=== PATIENT | female | born 1930 | race Caucasian/White ===

== ENCOUNTER 2020-04-19 09:55 | Emergency (ER) | payer MEDICARE, BC ==
[~2020-04-19] VITALS: Ht 162.6 cm; Wt 64.5 kg
[~2020-04-19 09:55] MED LIST: AMLO5TAB10 PO; DENO60DI SQ; IBUP100T8 PO; LOSA25TA11 PO; RALO60TA PO
[2020-04-19] MEDS ORDERED: IV NORMAL SALINE 1,000ML 1,000 ML IV SCH (10:08)
--- NOTE | 2020-04-19 10:13 | PHYS DOC ---
Past History Past Medical History: COPD, Hypertension, Other Past Surgical History: Other Smoking: Non-smoker Alcohol Use: None Drug Use: None General Adult EDM: Chief Complaint: ABNORMAL LABS HPI: HPI: Patient is an 89 year old female who presents for evaluation of some lower abdominal pain and cramping. Patient is a resident at a local assisted living facility. Patient's son brought her in for evaluation. Patient had recent labs drawn and was told she had a low hemoglobin. Patient has some persistent chronic shortness of air. She also states she feels very tired. Patient denies any other physical symptoms. She has no complaints of headache or chest pain. 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 Patient had some mild conversational dyspnea on arrival. Patient is not a good historian but can follow simple commands and answers basic questions. We called her extended-care facility and they provide additional information that she is been weak, short of air and had a recent headache over the past 1 week. Patient is DNR and is not on any known blood thinners Review of Systems: Review of Systems: Constitutional: Denies fever or chills Eyes: Denies change in visual acuity HENT: Denies nasal congestion or sore throat Respiratory: Denies cough or shortness of breath Cardiovascular: Denies chest pain or edema GI: lower abdominal pain, no nausea, vomiting, bloody stools or diarrhea : Denies dysuria Musculoskeletal: Denies back pain or joint pain Integument: Denies rash Neurologic: Denies headache, focal weakness or sensory changes Endocrine: Denies polyuria or polydipsia Lymphatic: Denies swollen glands Psychiatric: Denies depression or anxiety Heart Score: Risk Factors: Risk Factors: DM, Current or recent (<one month) smoker, HTN, HLP, family history of CAD, obesity. Risk Scores: Score 0 - 3: 2.5% MACE over next 6 weeks - Discharge Home Score 4 - 6: 20.3% MACE over next 6 weeks - Admit for Clinical Observation Score 7 - 10: 72.7% MACE over next 6 weeks - Early Invasive Strategies Allergies: Allergies: Allergies Coded Allergies Type Severity Reaction Last Updated Verified Penicillins Allergy Unknown 03/19/14 Yes Sulfa (Sulfonamide Antibiotics) Allergy Unknown 03/19/14 Yes clarithromycin Allergy Unknown 03/19/14 Yes morphine Allergy Unknown 03/19/14 Yes Physical Exam: PE: Constitutional: Well developed, well nourished, mild acute distress. [] HENT: Normocephalic, atraumatic, bilateral external ears normal, oropharynx somewhat dry, no oral exudates, nose normal. [] Eyes: PERRL, EOMI, conjunctiva normal, no discharge. [] Neck: Normal range of motion, no tenderness, supple, no stridor. [] Cardiovascular:Heart rate regular rhythm, no murmur [] Lungs & Thorax: Bilateral breath sounds clear to auscultation [] Abdomen: Bowel sounds diminished, soft, lower abd tenderness, no masses, no pulsatile masses. [] Skin: Warm, dry, no erythema, no rash. [] Back: No tenderness. [] Extremities: No tenderness, no cyanosis, ROM intact, no edema. [] Neurologic: Alert and oriented X 3, normal motor function, normal sensory function, no focal deficits noted. [] Psychologic: Affect abnormal, mood depressed. Rectal: Snack Stewardess present during exam. Essentially normal rectum, dark-colored stool present no gross blood present [] Current Patient Data: Labs: Laboratory Tests Test 04/19/20 10:22 White Blood Count 11.2 x10^3/uL Red Blood Count 2.72 x10^6/uL Hemoglobin 6.3 g/dL Hematocrit 20.0 % Mean Corpuscular Volume 73 fL Mean Corpuscular Hemoglobin 23 pg Mean Corpuscular Hemoglobin Concent 32 g/dL Red Cell Distribution Width 17.0 % Platelet Count 627 x10^3/uL Neutrophils (%) (Auto) 51 % Lymphocytes (%) (Auto) 41 % Monocytes (%) (Auto) 7 % Eosinophils (%) (Auto) 1 % Basophils (%) (Auto) 1 % Neutrophils # (Auto) 5.7 x10^3uL Lymphocytes # (Auto) 4.6 x10^3/uL Monocytes # (Auto) 0.8 x10^3/uL Eosinophils # (Auto) 0.1 x10^3/uL Basophils # (Auto) 0.1 x10^3/uL Sodium Level 131 mmol/L Potassium Level 4.5 mmol/L Chloride Level 98 mmol/L Carbon Dioxide Level 29 mmol/L Anion Gap 4 Blood Urea Nitrogen 19 mg/dL Creatinine 1.1 mg/dL Estimated GFR (Cockcroft-Gault) 46.9 BUN/Creatinine Ratio 17 Glucose Level 127 mg/dL Calcium Level 8.9 mg/dL Total Bilirubin 0.3 mg/dL Aspartate Amino Transf (AST/SGOT) 42 U/L Alanine Aminotransferase (ALT/SGPT) 32 U/L Alkaline Phosphatase 305 U/L Troponin I Quantitative < 0.017 ng/mL Total Protein 6.3 g/dL Albumin 2.4 g/dL Albumin/Globulin Ratio 0.6 Lipase 119 U/L Current Medications Medications (Trade) Dose Ordered Sig/Leonor Route PRN Reason Start Time Stop Time Status Last Admin Dose Admin Sodium Chloride 1,000 ml @ 100 mls/hr Q10H IV 04/19/20 10:08 04/19/20 20:07 04/19/20 10:40 Famotidine (Pepcid Vial) 20 mg 1X ONCE IVP 04/19/20 10:15 04/19/20 10:17 DC 04/19/20 10:39 EKG: EKG: EKG showed sinus rhythm rate 94, flattened T waves lead aVL, multiple PAC present, not STEMI [] Radiology/Procedures: Radiology/Procedures: [[place] [address] IMAGING REPORT Signed PATIENT: JONATHAN NEWBERRY ACCOUNT: [id number] : 1930 LOCATION: ER AGE: 89 SEX: F EXAM STATUS: REG ER ORD. PHYSICIAN: DOUG VILLANUEVA DO REASON: recent headache, confusion PROCEDURE: CT HEAD WO CONTRAST CT HEAD WO CONTRAST History:Recent headache, confusion Comparison: None. Technique: Noncontrast CT imaging was performed of the head. Exposure: One or more of the following individualized dose reduction techniques were utilized for this examination: 1. Automated exposure control 2. Adjustment of the mA and/or kV according to patient size 3. Use of iterative reconstruction technique. Findings: There is some motion. No convincing acute extra-axial or parenchymal hemorrhage is identified, mild hyperdensity of the left basal ganglia likely mild mineralization. There is no significant intra-axial mass effect, midline shift, or extra-axial fluid collection. The eisenberg-white differentiation of the major vascular territories is preserved. Ventricular size is proportionate to the sulcal spaces, mild generalized supratentorial involutional change. There is mild ill-defined low-density of the supratentorial parenchyma bilaterally. The mastoid air cells and the visualized paranasal sinuses are aerated. No acute calvarial abnormality is identified. There is some atherosclerotic calcification of the carotid siphons bilaterally. Impression: 1. No convincing acute intracranial abnormality is identified. Mild ill-defined low-density of the supratentorial parenchyma is nonspecific, more commonly due to chronic microvascular ischemic disease in a patient of this age. Electronically signed by: Jean Paul Mayberry MD (04/19/2020 11:30 AM) [id number] DICTATED AND SIGNED BY: JEAN PAUL MAYBERRY MD DATE: 04/19/20 1130 CC: DOUG VILLANUEVA DO; ENRIQUE ARROYO MD ~ Impressions: [address] [address] IMAGING REPORT Signed PATIENT: JONATHAN NEWBERRY ACCOUNT: [id number] : 1930 LOCATION: ER AGE: 89 SEX: F EXAM STATUS: REG ER ORD. PHYSICIAN: DOUG VILLANUEVA DO REASON: abd cramping, anemia PROCEDURE: ACUTE ABDOMEN SERIES ACUTE ABDOMEN SERIES History: Abdominal cramping and anemia Comparison: 10/31/2016 chest exam, no previous abdomen radiographs Findings: Single view of the chest, single supine, and single upright AP views of the abdomen are submitted. There is emphysema. Pericardial cardiac silhouette appears somewhat greater than previously although not significantly enlarged. There is no dependent pleural fluid or pneumothorax. There is small nodule of the right upper lobe although unchanged, previously greater degree of infiltrate present. There is some persistent fullness of the right suprahilar region fairly similar radiographically. Mild somewhat linear opacity of the mid to superior left hemithorax is similar. No free air is identified. There is an overall nonobstructive bowel gas pattern. 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 Impression: 1. Pericardial cardiac silhouette there is one larger than previously, otherwise no convincing acute radiographic abnormality. 2. There is emphysema. 3. There is a similar residual small right upper lobe nodule, also some fullness of the right suprahilar region similar radiographically allowing for previously greater degree of infiltrate present. Nonemergent chest CT would more accurately characterize findings if clinically needed. Electronically signed by: Jean Paul Mayberry MD (04/19/2020 11:37 AM) [id number] DICTATED AND SIGNED BY: JEAN PAUL MAYBERRY MD DATE: 04/19/20 1137 CC: DOUG VILLANUEVA DO; ENRIQUE ARROYO MD ~ Course & Med Decision Making: Course & Med Decision Making Pertinent Labs and Imaging studies reviewed. (See chart for details) []1155 Case discussed with our hospitalist, Dr. Arciniega. In light of patient's anemia and a possible GI bleed he felt patient would be better served at a higher care facility. On-call for the [facility] service called to discuss case. Patient is not on any known blood thinner. Because of patient's recent reported headache a CT scan was obtained but did not show evidence of a brain bleed. Patient is awake alert and appropriate at her baseline status 1219 Dr. Fatima (hospitalist) called back from [place] and accepted pt for admission. Will admit to [facility] bed. Guaiac is negative. Patient will be transfused 1 unit of blood. They are working on a bed now. DNR status is confirmed Pippa Disclaimer: Pippa Disclaimer: This electronic medical record was generated, in whole or in part, using a voice recognition dictation system. Departure Departure: Impression: Primary Impression: Anemia Additional Impressions: Lower abdominal tenderness Malaise and fatigue Headache Disposition: 05 TRANSFER OTHER ([facility] under care of Dr. Fatima) Condition: STABLE Referrals: ENRIQUE ARROYO MD (PCP) Justification of Admission: Justification of Admission: Justification of Admission Dx: Yes Comments: anemia requiring transfusion DOUG VILLANUEVA DO Apr 19, 2020 10:13
[2020-04-19] MEDS ORDERED: FAMOTIDINE 20 MG/2 ML VIAL IVP ONE (10:15)
[2020-04-19 10:51] LABS: BASO # 0.1 x10^3/uL (0.0-0.2); BASO % 1 % (0-3); EOS # 0.1 x10^3/uL (0.0-0.7); EOS % 1 % (0-3); LYMPH # 4.6 x10^3/uL (1.0-4.8); LYMPH % 41 % (24-48); MEAN CORPUSCULAR HEMOGLOBIN 23 pg (25-35); MEAN CORPUSCULAR HGB CONC 32 g/dL (31-37); MEAN CORPUSCULAR VOLUME 73 fL (79-100); MONO # 0.8 x10^3/uL (0.0-1.1); MONO % 7 % (0-9); NEUT # 5.7 x10^3uL (1.8-7.7); NEUT % 51 % (31-73); PLATELET COUNT 627 x10^3/uL (140-400); RED BLOOD COUNT 2.72 x10^6/uL (3.50-5.40); WHITE BLOOD COUNT 11.2 x10^3/uL (4.0-11.0)
[2020-04-19 10:57] LABS: CALCIUM 8.9 mg/dL (8.5-10.1); CREATININE 1.1 mg/dL (0.6-1.0); GFR 46.9; POTASSIUM 4.5 mmol/L (3.5-5.1)
[2020-04-19 10:58] LABS: HEMOGLOBIN 6.3 g/dL (12.0-15.5)
[2020-04-19 11:03] LABS: ALBUMIN 2.4 g/dL (3.4-5.0); ALBUMIN/GLOBULIN RATIO 0.6 (1.0-1.7); TOTAL BILIRUBIN 0.3 mg/dL (0.2-1.0); TOTAL PROTEIN 6.3 g/dL (6.4-8.2)
--- NOTE | 2020-04-19 11:33 | RAD ---
CT HEAD WO CONTRAST History:Recent headache, confusion Comparison: None. Technique: Noncontrast CT imaging was performed of the head. Exposure: One or more of the following individualized dose reduction techniques were utilized for this examination: 1. Automated exposure control 2. Adjustment of the mA and/or kV according to patient size 3. Use of iterative reconstruction technique. Findings: There is some motion. No convincing acute extra-axial or parenchymal hemorrhage is identified, mild hyperdensity of the left basal ganglia likely mild mineralization. There is no significant intra-axial mass effect, midline shift, or extra-axial fluid collection. The eisenberg-white differentiation of the major vascular territories is preserved. Ventricular size is proportionate to the sulcal spaces, mild generalized supratentorial involutional change. There is mild ill-defined low-density of the supratentorial parenchyma bilaterally. The mastoid air cells and the visualized paranasal sinuses are aerated. No acute calvarial abnormality is identified. There is some atherosclerotic calcification of the carotid siphons bilaterally. Impression: 1. No convincing acute intracranial abnormality is identified. Mild ill-defined low-density of the supratentorial parenchyma is nonspecific, more commonly due to chronic microvascular ischemic disease in a patient of this age. Electronically signed by: Daniel Bland MD (04/19/2020 11:30 AM) [id number]
--- NOTE | 2020-04-19 11:40 | RAD ---
ACUTE ABDOMEN SERIES History: Abdominal cramping and anemia Comparison: 10/31/2016 chest exam, no previous abdomen radiographs Findings: Single view of the chest, single supine, and single upright AP views of the abdomen are submitted. There is emphysema. Pericardial cardiac silhouette appears somewhat greater than previously although not significantly enlarged. There is no dependent pleural fluid or pneumothorax. There is small nodule of the right upper lobe although unchanged, previously greater degree of infiltrate present. There is some persistent fullness of the right suprahilar region fairly similar radiographically. Mild somewhat linear opacity of the mid to superior left hemithorax is similar. No free air is identified. There is an overall nonobstructive bowel gas pattern. 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 Impression: 1. Pericardial cardiac silhouette there is one larger than previously, otherwise no convincing acute radiographic abnormality. 2. There is emphysema. 3. There is a similar residual small right upper lobe nodule, also some fullness of the right suprahilar region similar radiographically allowing for previously greater degree of infiltrate present. Nonemergent chest CT would more accurately characterize findings if clinically needed. Electronically signed by: Daniel Bland MD (04/19/2020 11:37 AM) [id number]
[2020-04-19 12:09] LABS: FECAL OB PT NEGATIVE (NEG)
[2020-04-19 12:25] VITALS: BP 129/62
[2020-04-19 14:05] LABS: BACTERIA,URINE 0 /HPF (0-FEW); BILIRUBIN,URINE NEG (NEG); CLARITY,URINE CLEAR; COLOR,URINE YELLOW; GLUCOSE,URINE NEG (NEG); NITRITE,URINE NEG (NEG); RBC,URINE 0 /HPF (0-2); SQUAMOUS EPITHELIAL CELL,UR FEW /LPF; UROBILINOGEN,URINE 0.2 mg/dL (0.2 mg/dL); WBC,URINE OCC /HPF (0-4)
--- NOTE | 2020-04-19 15:54 | EKG ---
[address] [address] Test Date: 2020-04-19 Test Time: 10:33:00 Pat Name: JONATHAN NEWBERRY Department: Room: Gender: F Tan Room Supervisor: MANJEET : 1930 Requested By: DOUG VILLANUEVA Order Number: [id number] Reading MD: Measurements Intervals [place] Rate: 94 P: 70 WY: 130 QRS: 56 QRSD: 72 T: 59 QT: 312 QTc: 395 Interpretive Statements SINUS RHYTHM ATRIAL PREMATURE COMPLEX(ES), BIGEMINY ABNORMAL ECG RI6.02 No previous ECG available for comparison
[2020-04-19] MEDS ORDERED: ACETAMINOPHEN 325 MG TABLET PO ONE (17:15)
[2020-04-19 17:36] VITALS: BP 145/75
== END 2020-04-19 17:42 | disposition short-term general hospital (02) ==
LOC: ER 09:55
DX: D64.9 Anemia, unspecified (principal); R10.30 Lower abdominal pain, unspecified; R53.83 Other fatigue; R51 Headache; R53.81 Other malaise; J44.9 Chronic obstructive pulmonary disease, unspecified; I10 Essential (primary) hypertension; Z88.0 Allergy status to penicillin; Z88.2 Allergy status to sulfonamides; Z88.5 Allergy status to narcotic agent; Z88.1 Allergy status to other antibiotic agents
CPT/HCPCS: 36415; 36430; 70450; 74022; 80053; 81001; 82274; 83690; 84484; 85025; 86850; 86900; 86901; 86920; 93005; 96361; 96374; 99285; J3490; J7030; P9016

== ENCOUNTER 2020-06-01 09:31 | Inpatient (IN) | payer MEDICARE, BC ==
[~2020-06-01] VITALS: Ht 152.4 cm; Wt 52.1 kg
[2020-06-01] VITALS (9 sets, daily range): BP systolic 94–134; BP diastolic 41–84
[2020-06-01] MEDS ORDERED: IV NORMAL SALINE 1,000ML 1,000 ML IV ONE (10:00)
--- NOTE | 2020-06-01 10:05 | PHYS DOC ---
Past History Past Medical History: COPD, Hypertension, Other Past Surgical History: Other Smoking: Non-smoker Alcohol Use: None Drug Use: None General Adult EDM: Chief Complaint: LOWER EXTREMITY SWELLING HPI: HPI: 89-year-old female past medical history significant for COPD, hypertension and anemia, presents to the ED from [place] with complaints of leg swelling x 1 week with increased heart rate. Pt does have some mild dementia, son present in ed. EMR was reviewed and patient was seen here in April 2020 for abdominal pain, was transferred to [facility], s/p colon resection 2/ adenocarcinoma. Pt with no active compliants. Son reports she's not as active/alert as she normally is. Medications reviewed, on no AC. 2016 echo with normal EF, mild mitral regurgitation. Son doesn't think pt had an echo on past admission. Pt was discharged from rehab yesterday. Review of Systems: Review of Systems: Constitutional: Denies fever or chills Eyes: Denies change in visual acuity HENT: Denies nasal congestion or sore throat Respiratory: Denies cough or shortness of breath or hemoptysis Cardiovascular: Denies chest pain or palpitations GI: Denies abdominal pain, nausea, vomiting, or diarrhea : Denies dysuria, hematuria Musculoskeletal: Denies back pain or joint pain Integument: Denies rash Neurologic: Denies headache, focal weakness or sensory changes Endocrine: Denies polyuria or polydipsia Lymphatic: Denies swollen glands Psychiatric: Denies depression or anxiety Heart Score: Risk Factors: Risk Factors: DM, Current or recent (<one month) smoker, HTN, HLP, family history of CAD, obesity. Risk Scores: Score 0 - 3: 2.5% MACE over next 6 weeks - Discharge Home Score 4 - 6: 20.3% MACE over next 6 weeks - Admit for Clinical Observation Score 7 - 10: 72.7% MACE over next 6 weeks - Early Invasive Strategies Current Medications: Current Meds: Current Medications Medications (Trade) Dose Ordered Sig/Leonor Start Time Stop Time Status Last Admin Dose Admin Sodium Chloride 1,000 ml @ 1,000 mls/hr 1X ONCE 06/01/20 10:00 06/01/20 10:59 Allergies: Allergies: Allergies Coded Allergies Type Severity Reaction Last Updated Verified Penicillins Allergy Unknown 03/19/14 Yes Sulfa (Sulfonamide Antibiotics) Allergy Unknown 03/19/14 Yes clarithromycin Allergy Unknown 03/19/14 Yes morphine Allergy Unknown 03/19/14 Yes Physical Exam: PE: Constitutional: Well developed, well nourished, no acute distress, non-toxic appearance. [] HENT: Normocephalic, atraumatic, Eyes: EOMI, conjunctiva normal, no discharge. [] Neck: Normal range of motion, supple, Cardiovascular: irregular fast rhythm, no murmur [] Lungs & Thorax: Bilateral breath sounds clear to auscultation, 100% on 3L NC- pts' baseline Abdomen: midline lower abdominal scar, c/d/i, Bowel sounds normal, soft, no tenderness, no masses, no pulsatile masses, no ascites Skin: Warm, dry, no erythema, no rash. [] Back: No tenderness, no CVA tenderness. [] Extremities: No tenderness, no cyanosis, no clubbing, ROM intact, +3/4 bl pitting edema with weeping, right leg slightly increased in size than left Neurologic: Alert and oriented to month/year/location, normal motor function, normal sensory function, no focal deficits noted. [] Psychologic: Affect normal, judgement normal, mood normal. [] EKG: EKG: new onset atrial fibrillation in RVR at 169 bpm (unknown start time-pt asypmtomatic), no axis deviation, unremarkable intervals, cannot appreciate any ST elevations or ST depressions Repeat EKG after Cardizem shows irregular rhythm, atrial fibrillation 94 bpm, no axis deviation, normal intervals, no T wave inversions, no ST elevations or ST depressions Radiology/Procedures: Radiology/Procedures: IMAGING REPORT Signed PATIENT: JONATHAN NEWBERRY ACCOUNT: [id number] : 1930 LOCATION: ER AGE: 89 SEX: F EXAM STATUS: REG ER ORD. PHYSICIAN: JESENIA LING DO REASON: confusion PROCEDURE: CT HEAD WO CONTRAST CT HEAD WO CONTRAST Date: 06/01/2020 10:07 AM Clinical Indication: confusion Comparison: 04/19/2020. Technique: 5 mm axial tomographic images were obtained of the head without contrast. These were viewed on brain and bone windows. One or more of the following dose reduction techniques were utilized: Automated exposure control (AEC), Adjustment of mA and/or kV according to patient size, Use of iterative reconstruction technique such as ASiR, CT scan done according to ALARA and image gently/image wisely Findings: Mild generalized cerebral and cerebellar volume loss. Mild nonspecific periventricular hypoattenuation, most commonly seen with chronic small vessel ischemic disease. Calcified atherosclerosis of the bilateral cavernous and paraclinoid internal carotid arteries and intracranial vertebral arteries. No intra- or extra-axial mass or fluid collection. No acute hemorrhage. The ventricles are normal in size, shape, and morphology. The eisenberg-white matter junction is normal. The subarachnoid cisterns are patent. The visualized paranasal sinuses are normal. The visualized portions of the orbits and globes are normal. The mastoid air cells are clear. The corporate services manager topogram shows no lytic lesion or fracture. Impression: No acute intracranial process. Mild cerebral volume loss. Mild chronic small vessel ischemic disease. Electronically signed by: Jean Paul Conti MD (06/01/2020 10:54 AM) [id number] IMAGING REPORT Signed PATIENT: JONATHAN NEWBERRY ACCOUNT: [id number] : 1930 LOCATION: ER AGE: 89 SEX: F EXAM STATUS: REG ER ORD. PHYSICIAN: JESENIA LING DO REASON: bilateral leg swelling x 1 wk PROCEDURE: VENOUS LOWER EXT BILATERAL EXAMINATION: VENOUS LOWER EXT BILATERAL (LOWER EXTREMITY VENOUS ULTRASOUND) CLINICAL HISTORY: Bilateral lower extremity edema times one week TECHNIQUE: Sonographic grayscale images obtained of the bilateral lower extremity deep venous systems with color flow Doppler, compression, and augmentation techniques as indicated. Images obtained and stored in a permanent archive. COMPARISON: None FINDINGS: RIGHT: No evidence of absent flow or incompressibility within the common femoral vein, femoral vein, or popliteal vein. Calf veins suboptimally evaluated due to overlying edema. LEFT: No evidence of absent flow or incompressibility within common femoral vein, femoral vein, or popliteal vein. Calf pain suboptimally evaluated due to overlying edema. IMPRESSION: No evidence of bilateral lower extremity DVT. Nondiagnostic evaluation of the bilateral calf veins. Electronically signed by: Wilfred Morfin DO (06/01/2020 11:09 AM) [id number] DICTATED AND SIGNED BY: WILFRED MORFIN DO DATE: 06/01/20 1109 CC: JESENIA LING DO; ENRIQUE ARROYO MD ~ IMAGING REPORT Signed PATIENT: JONATHAN NEWBERRY ACCOUNT: [id number] : 1930 LOCATION: ER AGE: 89 SEX: F EXAM STATUS: REG ER ORD. PHYSICIAN: JESENIA LING DO REASON: leg swelling, concern for chf PROCEDURE: CHEST AP ONLY CHEST AP ONLY History: Leg swelling, concern for congestive heart failure Comparison: April 19, 2020 Findings: AP portable view of the chest is submitted. There is now small left pleural effusion with adjacent airspace opacity. There may be trace right pleural fluid. There is again emphysema. There is some increased hazy left perihilar airspace opacity. There is evidence of old granulomatous disease. Pericardial cardiac silhouette is borderline enlarged, may be somewhat larger although limited evaluation on the left due to the pleural effusion. There is atherosclerotic calcification near aortic arch. Impression: 1. There is now small left pleural effusion with adjacent edema/atelectasis/infiltrate, also possible trace right pleural fluid. There is increased perihilar opacity on the left which could be due to edema. 2. There is emphysema. Electronically signed by: Jean Paul Mayberry MD (06/01/2020 11:50 AM) [id number] DICTATED AND SIGNED BY: JEAN PAUL MAYBERRY MD DATE: 06/01/20 1150 CC: JESENIA LING DO; ENRIQUE ARROYO MD ~ Course & Med Decision Making: Course & Med Decision Making Pertinent Labs and Imaging studies reviewed. (See chart for details) Concern for new onset atrial fibrillation and rapid ventricular response, started on Cardizem drip. Patient also with bilateral lower extremity edema that has been progressive/worsening for the past week, duplex negative for dvt. Chest x-ray with small left pleural effusion, questionable right pleural effusion. EMR was reviewed at [facility] with no recent echocardiogram although CT of the chest did show bilateral pulmonary effusions, no pericardial effusion. Troponin is negative. BNP is in the 6000's. Electrolytes within normal limits. Urinalysis is a contaminated sample, will treat with fosfomycin in the ED for UTI. Will admit for cardiology consultation and echocardiogram. Patient accepted by Dr. Arciniega to the ICU. Patient stable at time of admission and agrees with this plan. I have spoken with the patient and/or caregivers. I have explained the patie nt's condition, diagnosis and treatment plan based on the information available to me at this time. I have answered the patient's and/or caregivers questions and answered any concerns. The patient and/or caregivers have as good an understanding of the patient's diagnosis, condition and treatment plan as can be expected at this point. The patient has been stabilized within the capability of the emergency department. The patient will be transported for further care and management or will be moved to an observation or inpatient service. I have communicated with the staff or medical practitioner taking over this patient's care. Critical Care: Authorized and Performed by: Jesenia Ling DO Total critical care time: approximately 30 minutes Due to a high probability of clinically significant, life threatening deterioration, the patient required my highest level of preparedness to inte rvene emergently and I personally spent this critical care time directly and personally managing the patient. This critical care time included obtaining a history; examining the patient; pulse oximetry; ventilator management if necessary; ordering and review of studies; arranging urgent treatment with development of a management plan; evaluation of patient's response to treatment; frequent reassessment; discussion with patient/family; and, discussions with other providers. This critical care time was performed to assess and manage the high probability of imminent, life-threatening deterioration that could result in multi-organ failure. It was exclusive of separately billable procedures and treating other patients and teaching time. Please see MDM section and the rest of the note for further information on patient assessment and treatment. Dragon Disclaimer: Dragon Disclaimer: This electronic medical record was generated, in whole or in part, using a voice recognition dictation system. Departure Departure: Impression: Primary Impression: Atrial fibrillation with rapid ventricular response Additional Impressions: Pleural effusion, left Leg swelling UTI (urinary tract infection) Disposition: ADMITTED INPATIENT Admitting Physician: Boubacar Arciniega Condition: CRITICAL Referrals: ENRIQUE ARROYO MD (PCP) Justification of Admission: Justification of Admission: Justification of Admission Dx: Yes CHF: Cardiac Arrhythmias JESENIA LING DO Jun 01, 2020 10:05
--- NOTE | 2020-06-01 10:12 | EKG ---
[address] [address] Test Date: 2020-06-01 Test Time: 10:00:16 Pat Name: JONATHAN NEWBERRY Department: Room: Gender: F Greaser Helper: KATHY : 1930 Requested By: ANASTASIA LING Order Number: [id number] Reading MD: Measurements Intervals [place] Rate: 169 P: MA: QRS: 56 QRSD: 72 T: 59 QT: 268 QTc: 454 Interpretive Statements IRREGULAR RHYTHM, NO P-WAVE FOUND LOW LIMB LEAD VOLTAGE NO SPECIFIC ECG ABNORMALITIES RI6.02 No previous ECG available for comparison
[2020-06-01] MEDS ORDERED: dilTIAZem 25 MG/5 ML VIAL IVP ONE ×2 (10:15→11:45)
--- NOTE | 2020-06-01 10:29 | EKG ---
[address] [address] Test Date: 2020-06-01 Test Time: 10:20:50 Pat Name: JONATHAN NEWBERRY Department: Room: Gender: F Chinchilla Machine Operator: KATHY : 1930 Requested By: ANASTASIA LING Order Number: [id number] Reading MD: Measurements Intervals [place] Rate: 94 P: DC: QRS: 54 QRSD: 72 T: 43 QT: 332 QTc: 415 Interpretive Statements IRREGULAR RHYTHM, NO P-WAVE FOUND LOW LIMB LEAD VOLTAGE NO SPECIFIC ECG ABNORMALITIES RI6.02 No previous ECG available for comparison
[2020-06-01 10:36] LABS: BASO # 0.1 x10^3/uL (0.0-0.2); BASO % 1 % (0-3); EOS % 0 % (0-3); HEMATOCRIT 31.5 % (36.0-47.0); HEMOGLOBIN 10.4 g/dL (12.0-15.5); LYMPH # 2.9 x10^3/uL (1.0-4.8); LYMPH % 42 % (24-48); MEAN CORPUSCULAR HEMOGLOBIN 28 pg (25-35); MEAN CORPUSCULAR HGB CONC 33 g/dL (31-37); MEAN CORPUSCULAR VOLUME 85 fL (79-100); MONO # 0.4 x10^3/uL (0.0-1.1); MONO % 6 % (0-9); NEUT # 3.5 x10^3uL (1.8-7.7); NEUT % 51 % (31-73); PLATELET COUNT 487 x10^3/uL (140-400); RED BLOOD COUNT 3.71 x10^6/uL (3.50-5.40); RED CELL DISTRIBUTION WIDTH 27.4 % (11.5-14.5); WHITE BLOOD COUNT 6.9 x10^3/uL (4.0-11.0)
[2020-06-01 10:43] LABS: CALCIUM 9.5 mg/dL (8.5-10.1); GFR 52.3; POTASSIUM 4.8 mmol/L (3.5-5.1)
[2020-06-01 10:55] LABS: ALBUMIN 2.8 g/dL (3.4-5.0); ALBUMIN/GLOBULIN RATIO 0.7 (1.0-1.7); MAGNESIUM 2.1 mg/dL (1.8-2.4); TOTAL BILIRUBIN 0.4 mg/dL (0.2-1.0)
--- NOTE | 2020-06-01 10:57 | RAD ---
CT HEAD WO CONTRAST Date: 06/01/2020 10:07 AM Clinical Indication: confusion Comparison: 04/19/2020. Technique: 5 mm axial tomographic images were obtained of the head without contrast. These were viewed on brain and bone windows. One or more of the following dose reduction techniques were utilized: Automated exposure control (AEC), Adjustment of mA and/or kV according to patient size, Use of iterative reconstruction technique such as ASiR, CT scan done according to ALARA and image gently/image wisely Findings: Mild generalized cerebral and cerebellar volume loss. Mild nonspecific periventricular hypoattenuation, most commonly seen with chronic small vessel ischemic disease. Calcified atherosclerosis of the bilateral cavernous and paraclinoid internal carotid arteries and intracranial vertebral arteries. No intra- or extra-axial mass or fluid collection. No acute hemorrhage. The ventricles are normal in size, shape, and morphology. The eisenberg-white matter junction is normal. The subarachnoid cisterns are patent. The visualized paranasal sinuses are normal. The visualized portions of the orbits and globes are normal. The mastoid air cells are clear. The corporate treasurer topogram shows no lytic lesion or fracture. Impression: No acute intracranial process. Mild cerebral volume loss. Mild chronic small vessel ischemic disease. Electronically signed by: Daniel Conti MD (06/01/2020 10:54 AM) [id number]
--- NOTE | 2020-06-01 11:12 | RAD ---
EXAMINATION: VENOUS LOWER EXT BILATERAL (LOWER EXTREMITY VENOUS ULTRASOUND) CLINICAL HISTORY: Bilateral lower extremity edema times one week TECHNIQUE: Sonographic grayscale images obtained of the bilateral lower extremity deep venous systems with color flow Doppler, compression, and augmentation techniques as indicated. Images obtained and stored in a permanent archive. COMPARISON: None FINDINGS: RIGHT: No evidence of absent flow or incompressibility within the common femoral vein, femoral vein, or popliteal vein. Calf veins suboptimally evaluated due to overlying edema. LEFT: No evidence of absent flow or incompressibility within common femoral vein, femoral vein, or popliteal vein. Calf pain suboptimally evaluated due to overlying edema. IMPRESSION: No evidence of bilateral lower extremity DVT. Nondiagnostic evaluation of the bilateral calf veins. Electronically signed by: Wilfred Green DO (06/01/2020 11:09 AM) [id number]
--- NOTE | 2020-06-01 11:53 | RAD ---
CHEST AP ONLY History: Leg swelling, concern for congestive heart failure Comparison: April 19, 2020 Findings: AP portable view of the chest is submitted. There is now small left pleural effusion with adjacent airspace opacity. There may be trace right pleural fluid. There is again emphysema. There is some increased hazy left perihilar airspace opacity. There is evidence of old granulomatous disease. Pericardial cardiac silhouette is borderline enlarged, may be somewhat larger although limited evaluation on the left due to the pleural effusion. There is atherosclerotic calcification near aortic arch. Impression: 1. There is now small left pleural effusion with adjacent edema/atelectasis/infiltrate, also possible trace right pleural fluid. There is increased perihilar opacity on the left which could be due to edema. 2. There is emphysema. Electronically signed by: Daniel Bland MD (06/01/2020 11:50 AM) [id number]
[2020-06-01 12:03] LABS: CLARITY,URINE CLOUDY; COLOR,URINE YELLOW
[2020-06-01 12:04] LABS: BILIRUBIN,URINE NEG (NEG); GLUCOSE,URINE NEG (NEG); UROBILINOGEN,URINE 0.2 mg/dL (0.2 mg/dL)
[2020-06-01 12:05] LABS: BACTERIA,URINE MOD /HPF (0-FEW); NITRITE,URINE NEG (NEG); RBC,URINE 0 /HPF (0-2); SQUAMOUS EPITHELIAL CELL,UR MOD /LPF; WBC,URINE 20-40 /HPF (0-4)
[2020-06-01] MEDS ORDERED: dilTIAZem VIAL 125 MG in IV NORMAL SALINE 100ML 100 ML IV PRN (12:15)
[2020-06-01] MEDS ORDERED: FOSFOMYCIN TROMETHAMINE 3 GM PACKET PO ONE (12:45)
[2020-06-01 13:34] LABS: ANISOCYTOSIS MOD; PLT ESTIMATE ADEQUATE (ADEQUATE)
--- NOTE | 2020-06-01 13:40 | HP ---
ADMIT DATE: 06/01/2020 ATTENDING PHYSICIAN: Dr. Flynn. CHIEF COMPLAINT: Leg swelling and a fast heart rate. HISTORY OF PRESENT ILLNESS: The patient is an 89-year-old female resident of [facility]. She was sent in with rapid heart rate and swelling of both her ankles. She denied any palpitations. She is chronically short of breath with minimal exertion. She recently got back from the Rehab Unit. She had been on intermittent doses of diuretics. In the Emergency Department, her chest x-ray showed cardiomegaly and vascular congestion, bilateral pleural effusions. Clinically, she has wet with the 4+ pitting edema extending all the way up to her thighs. She was also found to be in atrial fibrillation with rapid ventricular rate. When I saw her it range between 120 and 140 per minute, irregularly irregular. A Cardizem drip has been ordered. Her blood pressure is adequate at 140 mmHg. She is a DNR per advanced directive. She will be admitted for rate control, diuresis and management of her heart failure. Evidently, she had a fairly normal echocardiogram in 2017. PAST MEDICAL HISTORY: Significant for COPD, being a former smoker, essential hypertension and a recent diagnosis of colon cancer with a primary resection and primary anastomosis. I do not know the staging of those records at this time. She has underlying dementia. Her son is with her. He is very attentive and has filled in many ___. SOCIAL HISTORY: She was a smoker in the past. She has since quit. FAMILY HISTORY: Mom of complications of stroke at age 74. Father of old age at age 92. ALLERGIES: She has allergies to PENICILLIN, SULFA, TETANUS VACCINE AND TOXOID, CLARITHROMYCIN AND MORPHINE, exact reaction is unclear. CURRENT MEDICATIONS: Include losartan, intermittent Lasix, amlodipine, a multivitamin. PAST SURGICAL HISTORY: Includes colon resection, just this year. Last echocardiogram was reportedly 2017. REVIEW OF SYSTEMS: Significant for generalized weakness. She has dyspnea with minimal exertion. She has swelling of her ankles. She denied any chest pain, palpitations, COVID exposure, fevers or chills. All other systems reviewed and turned to be negative. PHYSICAL EXAMINATION: GENERAL: When I saw her, this is a thin, cachectic female. VITAL SIGNS: Initial vital signs in the ED showed a blood pressure of 132/68, pulse was ranging anywhere from 125-165, irregularly irregular, temperature 98.2 degrees Fahrenheit, oxygen saturation 99% on 2 liters nasal cannula. HEENT: Head is without trauma. Pupils are reactive. Sclerae nonicteric. Oropharynx is clear. NECK: Supple, no bruits. LUNGS: Crackles at both bases. She has fairly good air movement. No wheezing. CARDIOVASCULAR: Showed a tachycardic rhythm, irregularly irregular, variable S1 noticeable S2. Soft grade 2 systolic ejection murmur at the left sternal border. Peripheral pulses are palpable and full. ABDOMEN: Soft, scaphoid, nontender, no organomegaly. Bowel sounds are hypoactive. EXTREMITIES: Showed 4+ edema extending all the way up to the thighs. This is pitting edema. NEUROLOGIC: The patient is pleasantly confused. Speech is fairly fluent. There is no focal deficit. The tendon reflexes were normal and symmetrical. PERTINENT LABORATORY STUDIES: Her hemoglobin today is 10.4 g/dL with white count of 6900. Sodium was 135 mEq/L, potassium maintained at 4.8 mEq, creatinine is 1.0 mg/dL. The BNP is noticeably elevated at 6086 and her first set of cardiac enzymes showed no evidence of myocardial ischemia. PERTINENT LABORATORY AND X-RAY STUDIES: The obligatory CT of the head done earlier today showed a volume loss atrophy, microvascular changes, no acute strokes or bleeds identified. There is no shift of the midline. Doppler studies of both lower legs showed no evidence of clots. Chest x-ray showed cardiomegaly, vascular congestion and bilateral pleural effusions, hyperexpansion of airways consistent with COPD. ASSESSMENT: 1. This 89-year-old female has acute on chronic congestive heart failure. 2. Atrial fibrillation with rapid ventricular rate due to combination of systolic failure as well as right heart failure from most likely pulmonary hypertension. 3. Essential hypertension. 4. Underlying dementia. 5. Recent diagnosis of colon cancer with resection. 6. Moderate cachexia. PLAN: 1. Admit to the inpatient unit. 2. Telemetry monitoring. 3. Cardizem drip has been ordered and will be continued. 4. Diuresis. 5. Fluid restriction, daily weights. 6. We will consider getting an echocardiogram next week. 7. Serial chemistries. 8. The patient has a DNR advanced directives. We should respect her DNR status. MARCIN FLYNN MD DR: STEPHAN/rod JOB#: [id number] / [id number] POLO Louise MD
[2020-06-01] MEDS ORDERED: FUROSEMIDE 40 MG/4 ML VIAL IVP ONE (14:15)
--- NOTE | 2020-06-01 14:30 | NUR ---
Zena Ferrera, 89yo female was admitted to ICU-5 for AFIB, RVR, pleural effusion, on a diltiazem drip, Dr. Arciniega's service. Pt is currently residing at [facility] and Dr. Luque is her physician there. Pt recently had a colon resection in April at [facility] for cancer. Currently pt has >4+ pitting edema bilaterally up to her knees. Dr. Arciniega had seen pt in the ER and called unit with orders. Reviewed hospital and unit policies with pt and her son, written copies were provided. Pt has been settled in bed, connected to monitors, admission assessment completed, verified diltiazem drip dose. Will CTM with poc and orders, pt verbalized agreement.
[2020-06-01] MEDS: MELATONIN 3 MG TABLET PO PRN (21:41)
[2020-06-02] VITALS (15 sets, daily range): BP systolic 93–138; BP diastolic 44–67
[2020-06-02 05:52] LABS: CALCIUM 8.8 mg/dL (8.5-10.1); GFR 52.3; POTASSIUM 3.7 mmol/L (3.5-5.1)
[2020-06-02] MEDS ORDERED: FUROSEMIDE 40 MG/4 ML VIAL IVP SCH (08:00)
[2020-06-02] MEDS ORDERED: POTASSIUM CHLORIDE 20 MEQ TABLET.ER. PO SCH (08:00)
--- NOTE | 2020-06-02 08:34 | NUR ---
pt refused to sit in chair for breakfast but states she will try at lunch time. while patient is eating her heart rate increased to the 140's and sustained 120-130 while eating. Cardizem drip was increased to 15 ml/hr. Will ctm as needed.
--- NOTE | 2020-06-02 08:36 | NUR ---
Pt is still in AFIB at this time.
[2020-06-02] MEDS ORDERED: MAGNESIUM SULFATE 1GM 100 ML IV ONE (09:00)
[2020-06-02] MEDS: FUROSEMIDE 40 MG/4 ML VIAL IVP SCH (09:10)
[2020-06-02] MEDS: POTASSIUM CHLORIDE 20 MEQ TABLET.ER. PO SCH ×2 (09:10→20:48)
--- NOTE | 2020-06-02 09:16 | PN ---
DATE: 06/02/2020 ATTENDING PHYSICIAN: Dr. Flynn. CHIEF COMPLAINT: Fast heart rate. SUBJECTIVE: The patient is comfortable. She is pleasant. She is cooperative. She denied any chest pain or palpitations. OBJECTIVE: VITAL SIGNS: Blood pressure today is 106/47, pulse ranges between 78 and 110. She is afebrile. Oxygen saturation 100% on 2 liters by nasal cannula. HEENT: Head is without trauma. Pupils are reactive. Sclerae nonicteric. Venous pressure is distended at 45 degrees. NECK: Supple. LUNGS: Bibasilar crackles. CARDIOVASCULAR: Showed regular heart tones. No gallops, no murmurs. Peripheral pulses are palpable and full. ABDOMEN: Soft, scaphoid, nontender, no organomegaly. Bowel sounds were hypoactive. EXTREMITIES: Showed 3+ pitting edema, slightly improved. NEUROLOGIC: Focally intact. Speech is fluent, pleasantly confused. SKIN: Warm and dry. LABORATORY DATA: Her followup chemistry today showed potassium down to 3.7 mEq, sodium 138. Creatinine is 1.0 mg/dL. ASSESSMENT: 1. An 89-year-old female with atrial fibrillation with rapid ventricular rate. 2. Volume overload with significant pedal edema. 3. Essential hypertension. 4. Recent history of colon cancer. 5. Underlying dementia. 6. Moderate cachexia. 7. Chronic obstructive pulmonary disease. PLAN: 1. Continue Cardizem drip to maintain ventricular rate. 2. Add beta blockade. 3. Potassium and magnesium replacement. 4. Daily weights. 5. Fluid restriction. 6. Continue Lasix diuresis. She is a DNR per advanced directives. MARCIN FLYNN MD DR: STEPHAN/rod JOB#: [id number] / [id number]
[2020-06-02] MEDS: METOPROLOL TART IMMED RELEASE 50 MG TABLET PO SCH ×2 (10:36→20:49)
[2020-06-02] MEDS: ENOXAPARIN 30 MG/0.3 ML SYRINGE. SQ SCH (10:37)
[2020-06-02] MEDS ORDERED: dilTIAZem HCL 30 MG TABLET PO SCH (11:00)
--- NOTE | 2020-06-02 17:43 | NUR ---
PT REFUSED TO GET OUT OF BED FOR ALL MEALS.
[2020-06-02] MEDS: dilTIAZem HCL 30 MG TABLET PO SCH (20:48)
[2020-06-02] MEDS: MELATONIN 3 MG TABLET PO PRN (20:48)
[2020-06-03 04:00] VITALS: BP 101/58
[2020-06-03 06:02] LABS: CALCIUM 8.5 mg/dL (8.5-10.1); GFR 52.3; POTASSIUM 4.3 mmol/L (3.5-5.1)
[2020-06-03 06:05] VITALS: BP 116/61
--- NOTE | 2020-06-03 08:00 | NUR ---
PT GOT UP TO THE CHAIR AND ATE BREAKFAST IN HER CHAIR. PT'S SON CALLED AND PT WAS ABLE TO TALK TO HIM FOR A FEW MINUTES. PT IS COMFORTABLE AT THIS TIME. WILL CTM.
[2020-06-03] MEDS: dilTIAZem HCL 30 MG TABLET PO SCH (08:27)
[2020-06-03] MEDS: METOPROLOL TART IMMED RELEASE 50 MG TABLET PO SCH ×2 (08:28→20:33)
[2020-06-03] MEDS: ENOXAPARIN 30 MG/0.3 ML SYRINGE. SQ SCH (08:29)
[2020-06-03] MEDS: FUROSEMIDE 40 MG/4 ML VIAL IVP SCH (08:29)
[2020-06-03] MEDS: POTASSIUM CHLORIDE 20 MEQ TABLET.ER. PO SCH ×2 (08:29→20:33)
--- NOTE | 2020-06-03 09:01 | PN ---
DATE: 06/03/2020 ATTENDING PHYSICIAN: Dr. Flynn. CHIEF COMPLAINT: Fast heart rate. SUBJECTIVE: The patient is very comfortable. She is up in a chair, eating breakfast. Her appetite is fair. Her heart rate is controlled. She has been in the 70s and 80s. It is irregularly irregular. I believe, the atrial fibrillation is permanent. OBJECTIVE FINDINGS: VITAL SIGNS: Her blood pressure today is 116/61 mmHg, temperature 98.2 degrees Fahrenheit, pulse rate ranges between 76 and 83 per minute, irregular. Her oxygen saturation 98% on 2 liters by nasal cannula. HEENT: Head is without trauma. Pupils are reactive. Sclerae nonicteric. Oropharynx clear. NECK: Supple, no bruits. LUNGS: Minimal crackles persist at the bases. CARDIOVASCULAR: Show irregularly irregular rhythm. No obvious gallops. Peripheral pulses are palpable and full. ABDOMEN: Soft, scaphoid, nontender, no organomegaly. Bowel sounds were normoactive. EXTREMITIES: Showed 2+ edema. It is improving and not as prevalent as on admission. SKIN: Warm and dry. NEUROLOGIC: Intact. She is alert. She is pleasantly confused. LABORATORY DATA: Her chemistries today showed a sodium of 137 mEq/L, potassium replaced to 4.3 mEq, creatinine remarkably has stayed stable at 1.0 mg/dL. ASSESSMENT: 1. An 89-year-old female with atrial fibrillation with rapid ventricular rate. I believe, the atrial fibrillation is permanent. Her ventricular rate is controlled now. 2. Volume overload with pedal edema, improved with diuresis. 3. Essential hypertension, currently normotensive. 4. Recent history of colon cancer. 5. Underlying dementia. 6. Moderate protein-calorie malnutrition and cachexia. 7. Chronic obstructive pulmonary disease. PLAN: 1. The Cardizem drip has been switched to oral Cardizem. I can now switch her to a Cardizem-CD 120 mg p.o. daily. This should manage her heart rate. 2. Continue beta blockade. 3. Continue diuresis. 4. Fluid restriction. 5. I can wean her off of the oxygen. 6. Serial chemistry. 7. Potassium and magnesium replacement. 8. Tentative discharge plans for tomorrow. MARCIN FLYNN MD DR: STEPHAN/rod JOB#: [id number] / [id number]
[2020-06-03 12:00] VITALS: BP 120/52
[2020-06-03 16:00] VITALS: BP 120/56
--- NOTE | 2020-06-03 18:25 | NUR ---
PT IS ABLE TO SIT IN THE CHAIR AND EAT DINNER, SHE TOLERATED WELL. THIS NURSE TOOK PHOTOS OF HER BOTTOM AND CONTINUES TO ENCOURAGE HER TO KEEP TURNING HERSELF AND TRY TO STAY OFF OF HER BOTTOM. THERE WAS NO ORDER PLACED FOR WOUND CARE, ORDER PLACED. ORDER ALSO PLACED FOR PT. WILL CTM.
[2020-06-03 20:01] VITALS: BP 111/48
[2020-06-03 23:05] VITALS: BP 142/81
[2020-06-03] MEDS: MELATONIN 3 MG TABLET PO PRN (23:15)
[2020-06-04 06:23] LABS: GFR 52.3; POTASSIUM 4.4 mmol/L (3.5-5.1)
[2020-06-04 08:00] VITALS: BP 117/66
[2020-06-04] MEDS: POTASSIUM CHLORIDE 20 MEQ TABLET.ER. PO SCH ×2 (08:40→20:00)
[2020-06-04] MEDS: FUROSEMIDE 40 MG/4 ML VIAL IVP SCH (08:40)
[2020-06-04] MEDS: METOPROLOL TART IMMED RELEASE 50 MG TABLET PO SCH ×2 (08:40→20:00)
[2020-06-04] MEDS: ENOXAPARIN 30 MG/0.3 ML SYRINGE. SQ SCH (08:41)
[2020-06-04 13:30] VITALS: BP 111/49
--- NOTE | 2020-06-04 14:57 | PN ---
DATE: 06/04/2020 ATTENDING PHYSICIAN: Dr. Flynn CHIEF COMPLAINT: Fast heart rate. SUBJECTIVE: The patient is alert. She really wants to go home. I explained to her that we are making progress. Heart rate still remains elevated this morning. She just received her morning Cardizem and metoprolol dose. OBJECTIVE: VITAL SIGNS: Blood pressure today is 117-142 mmHg systolic. Heart rate fluctuates between 89 and 138, it was 127 when I went in this morning. Irregularly irregular. She is afebrile and her oxygen saturations are 98% on 0.5 liter nasal cannula. HEENT: Head is without trauma. Pupils are reactive. Sclerae nonicteric. Oropharynx is clear. NECK: Supple. No stridor. No lesions. LUNGS: Good breath sounds. CARDIOVASCULAR: Showed distant heart tones, tachycardic rhythm, irregularly irregular rhythm. No obvious gallops. Peripheral pulses are palpable and full. ABDOMEN: Soft, scaphoid, nontender, normoactive bowel sounds. EXTREMITIES: Showed the pedal edema to be much improved. The right ankle appears still slightly bigger than the left. There is 1+ edema, much improved from 3 days ago. PERTINENT LABORATORY STUDIES: The sodium is maintained at 136 mEq/L, potassium has been replaced up to 4.4 mEq. Paradoxically, the creatinine has remained identical over the last 4 days, suggesting that the diuresis is due to third space fluid. It is still at 1.0 mg percent. ASSESSMENT: 1. This 89-year-old female has atrial fibrillation with rapid ventricular rate. 2. Probable underlying sick sinus syndrome. 3. Volume overload with pedal edema, improved with diuresis. 4. Essential hypertension, currently normotensive. 5. Recent history of colon cancer with resection and primary anastomosis. 6. Underlying dementia. 7. Protein-calorie malnutrition and cachexia. 8. Chronic obstructive pulmonary disease by history. PLAN: 1. She just received her morning Cardizem CD 120 mg dose. I added an extra 60 mg of regular Cardizem to help with controlling the ventricular rate by blocking impulse through the AV node. 2. Continue beta blockade with metoprolol. 3. Continue Lasix diuresis. 4. Fluid restriction. 5. Supplemental oxygen will be weaned off. 6. Serial chemistries. 7. Potassium and magnesium replacement as ordered. Tentative discharge plans will be back to the [facility] by tomorrow. MARCIN FLYNN MD DR: STEPHAN/rod JOB#: [id number] / [id number]
[2020-06-04 17:07] VITALS: BP 137/64
--- NOTE | 2020-06-04 17:15 | NUR ---
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 Previously charted as 2 wounds. Wound is slough covered with reddened john-wound. Treatment Recommendations/Plan: Barrier cream BID and PRN Education provided: PU prevention, turn Q2 hours and avoid sitting fro more than 2 hours a day. Offloading surface/device: Recommend P500 Bed and WC cushion, discussed with RN and administrative staff supervisor. Recommended Referrals/Tests: none Discharge Recommendations for dressings: Continue barrier cream
[2020-06-04] MEDS: MELATONIN 3 MG TABLET PO PRN (20:00)
[2020-06-04 22:38] VITALS: BP 122/66
[2020-06-05 08:00] VITALS: BP 131/82
[2020-06-05] MEDS: METOPROLOL TART IMMED RELEASE 50 MG TABLET PO SCH (08:12)
[2020-06-05] MEDS: POTASSIUM CHLORIDE 20 MEQ TABLET.ER. PO SCH (08:13)
[2020-06-05] MEDS: FUROSEMIDE 40 MG/4 ML VIAL IVP SCH (08:14)
[2020-06-05] MEDS: ENOXAPARIN 30 MG/0.3 ML SYRINGE. SQ SCH (08:14)
--- NOTE | 2020-06-05 10:24 | DS ---
DATE OF DISCHARGE: 06/05/2020 ATTENDING PHYSICIAN: Dr. Flynn. FINAL DISCHARGE DIAGNOSES: 1. Atrial fibrillation with rapid ventricular rate. 2. Probable underlying sick sinus syndrome. 3. Volume overload with pedal edema. 4. Essential hypertension, currently normotensive. 5. Recent history of colon cancer with resection and primary anastomosis. 6. Underlying dementia. 7. Protein-calorie malnutrition and cachexia. 8. Chronic obstructive pulmonary disease. HISTORY AND PHYSICAL: The patient is an 89-year-old female resident of a local assisted. She was admitted with a fast heart rate, tachycardic, and irregular rhythm. She has atrial fibrillation with rapid ventricular rate in the 150s. She also had volume overload and bilateral pleural effusions on chest x-ray. Clinically, she was volume overloaded, most likely due to a component of heart failure. PHYSICAL EXAMINATION: Please see the dictated note. PERTINENT LABORATORY AND X-RAY STUDIES: Her admission hemoglobin was maintained at 10.4 g/dL with a white count of 6900. Initial sodium was 135 mEq, potassium 4.8. Replaced was up to 4.4 mEq per liter. Interesting, her serum creatinine remained stable and identical at 1.0 daily for the 4 days. This suggests with active diuresis that the volume and the fluid that was immobilizing her from the third space were not affecting her vascular fluid. Her BNP was elevated at 6086. Cardiac enzymes are negative for coronary ischemia. COURSE IN THE HOSPITAL: The patient was admitted. She was started on increased Lasix dose with diuresis with marked improvement, swelling in her ankles improved remarkably and her ventricular rate was controlled with the addition of beta blockers, metoprolol 50 b.i.d., and the initiation of a Cardizem drip, eventually converted to Cardizem CD 180 mg daily. We substituted the Cardizem calcium channel irma in place of the amlodipine, which also aggravates pedal edema. She did well. Diet was advanced. Serial chemistries were drawn and on the fifth hospital day, her vital signs were stable. She was ready for discharge back to the assisted. Her heart rate this morning still fluctuates with exertion, although when I saw her, it was down to 90 and irregularly irregular. Blood pressure maintained at 131/82 mmHg, oxygen saturation adequate on room air and her temperature was normal at 98.5 degrees Fahrenheit. Therefore, on the fifth hospital day, the patient was discharged back to the assisted with the following medications. She will continue her metoprolol 50 mg p.o. b.i.d., Cardizem CD 180 mg p.o. daily, losartan 25 mg daily, Evista 60 mg daily, Prolia injections as scheduled, Lasix 80 mg p.o. daily and K-Dur 20 mEq b.i.d. For now, we stopped her ibuprofen and amlodipine. She remains a DNR per advanced directives. Her prognosis is fair. She was discharged then from our hospital in stable condition with explicit instructions and followup care. MARCIN FLYNN MD DR: STEPHAN/rod JOB#: [id number] / [id number] POLO Louise MD
[2020-06-05 12:00] VITALS: BP 122/52
== END 2020-06-05 13:43 | disposition home or self-care (01) | DRG 292 ==
LOC: ER 09:31 → ICU 12:15 → INTOOBSV 12:15 → OBSVTOIN 12:15
PROVIDERS: ADMIT Hospitalist; ATTEND Hospitalist
DX: I11.0 Hypertensive heart disease with heart failure (principal); J90 Pleural effusion, not elsewhere classified; E44.0 Moderate protein-calorie malnutrition; N39.0 Urinary tract infection, site not specified; R64 Cachexia; I48.21 Permanent atrial fibrillation; I49.5 Sick sinus syndrome; I50.41 Acute combined systolic (congestive) and diastolic (congestive) heart failure; E87.70 Fluid overload, unspecified; F03.90 Unspecified dementia, unspecified severity, without behavioral disturbance, psychotic disturbance, mood disturbance, and anxiety; I27.29 Other secondary pulmonary hypertension; J43.9 Emphysema, unspecified; Z66 Do not resuscitate; Z79.899 Other long term (current) drug therapy; Z85.038 Personal history of other malignant neoplasm of large intestine; Z87.891 Personal history of nicotine dependence; Z90.49 Acquired absence of other specified parts of digestive tract; Z88.0 Allergy status to penicillin; Z88.2 Allergy status to sulfonamides; Z88.8 Allergy status to other drugs, medicaments and biological substances; Z68.22 Body mass index [BMI] 22.0-22.9, adult
CPT/HCPCS: 36415; 70450; 71045; 80048; 80053; 81001; 82550; 83735; 83880; 84484; 85025; 87086; 93005; 93970; J1650; J1940; J3475; J3490; 97116

== ENCOUNTER 2021-03-18 00:30 | Emergency (ER) | payer MEDICARE, BC ==
[~2021-03-18] VITALS: Ht 154.9 cm; Wt 55.6 kg
[~2021-03-18 00:30] MED LIST changes: +AMLO-186 PO; -AMLO5TAB10 PO
--- NOTE | 2021-03-18 00:32 | PHYS DOC ---
Past History Past Medical History: Anxiety, Arthritis, Bartholin Cyst, CAD, Cancer, CHF, COPD, Dementia, Depression, Heart Disease, Hip Fracture, Hypertension, Hypothyroid, Other Additional Past Medical Histor: PULM FIBROSIS Past Surgical History: Hip Replacement, Other Additional Past Surgical Histo: COLON RESECTION Smoking: Non-smoker, Quit Greater Than 1 Year Alcohol Use: None Drug Use: None General Adult HPI: HPI: ". .. She been sick since Thursday... 03/11.. .She just not eating.. We seen Cindy on Thursday.. but her vital were normal.. so he just though she caught flu or GI bug.. but she is not better. vey bloated.. no stool . is having urine...:' Patient is a 89 year old female who presents with above hx and complains of abdomen pain the past week. She has had very poor intake past week. Patient has not had any significant stool. Has been very bloated. Pain is generalized in abdomen. Patient port has not had any recent travel or specific ill contacts. Patient does have significant history of colon cancer was resected in April 2020. Surgery did not require colostomy. Patient does complain of nausea and generalized abdomen discomfort. No history of trauma. Does have history of COPD, hypertension, colon cancer, dementia, A. fib,, CHF, malnutrition, sick sinus syndrome, and deconditioning. Patient lives with family. No other family members have been ill. Pt. follow s with Dr. Arroyo. Review of Systems: Review of Systems: Constitutional: Denies fever or chills Eyes: Denies change in visual acuity HENT: Denies nasal congestion or sore throat Respiratory: Denies cough or shortness of breath Cardiovascular: Denies chest pain or edema GI: Complains of abdominal pain, nausea. Denies, vomiting, bloody stools or diarrhea : Denies dysuria Musculoskeletal: Complains of generalized fatigue Integument: Denies rash Neurologic: Denies headache, focal weakness or sensory changes Endocrine: Denies polyuria or polydipsia Lymphatic: Denies swollen glands Psychiatric: Denies depression or anxiety Family History: Family History: Mother had from stroke at age 74, father of old age 92 Current Medications: Current Meds: See nursing for home meds Allergies: Allergies: Allergies Coded Allergies Type Severity Reaction Last Updated Verified Penicillins Allergy Unknown 06/01/20 Yes Sulfa (Sulfonamide Antibiotics) Allergy Unknown 06/01/20 Yes Tetanus Vaccines and Toxoid Allergy Unknown 06/01/20 Yes clarithromycin Allergy Unknown 06/01/20 Yes morphine Allergy Unknown 06/01/20 Yes Physical Exam: PE: Constitutional: Moderate acute distress, cachectic looking in appearance. [] HENT: Normocephalic, atraumatic, bilateral external ears normal, oropharynx dry, no oral exudates, nose normal. [] Eyes: PERRLA, EOMI, conjunctiva normal, no discharge. Glasses Neck: Normal range of motion, no tenderness, supple, no stridor. [] Cardiovascular: Irregular rate heart rate and rhythm, no murmur [] PMI to left Lungs & Thorax: Bilateral breath sounds equal apex with scattered wheezes on auscultation [] Abdomen: Bowel sounds hyperactive, soft, generalized tenderness, distended, old surgery scars, no masses, no pulsatile masses. Tympanic, [] No focal areas of rebound. Skin: Warm, dry, no erythema, no rash. Poor turgor. Back: No tenderness, no CVA tenderness. [] Extremities: No tenderness, no cyanosis, no clubbing, , no edema. New contusion. Left conde. Arthritic changes. Lt hip scar. Neurologic: Alert and oriented X 3, normal motor function, normal sensory fu nction, no focal deficits noted. [] Psychologic: Affect anxious, judgement appears impaired mood depressed.] EKG: EKG: My interpretation EKG shows sinus rhythm at 93 bpm. Does have occasional PACs. Some wavering baseline. No findings acute STEMI of contralateral changes. Time of EKG is 0206 hrs. [] Radiology/Procedures: Radiology/Procedures: [][address] [place] [id number] IMAGING REPORT Signed PATIENT: JONATHAN NEWBERRY ACCOUNT: [id number] : 1930 LOCATION: ER AGE: 89 SEX: F EXAM STATUS: REG ER ORD. PHYSICIAN: CELY ISSA MD REASON: ileus, loss of appetite, vomiting, mass on left hilar seen on cxr PROCEDURE: CT CHEST ABD PELVIS W/CONTRAST Examination: CT chest abdomen pelvis with IV contrast HISTORY: History of vomiting, mass, ileus COMPARISON: CT 04/30/2020 Technique: Axial CT images of the chest abdomen pelvis are performed with IV contrast. Coronal and sagittal reformats are performed Exposure: One or more of the following individualized dose reduction techniques were utilized for this examination: 1. Automated exposure control 2. Adjustment of the mA and/or kV according to patient size 3. Use of iterative reconstruction technique FINDINGS: The visualized thyroid gland grossly appears unremarkable. Central airways are patent. Mild dilated esophagus with thickened appearance of the distal wall of the esophagus. There is a 6.9 x 3.8 cm hypodense mass identified in the left suprahilar region extending to the mediastinum likely malignancy or metastasis.. There are scattered nodules identified in the bilateral lungs with the largest measuring 9 mm right upper lobe of the lung with tiny cavitation. Mild perihepatic fluid identified. The gallbladder is moderately distended with 1.2 cm gallstone identified in the proximal gallbladder. Calcified granulomas identified in the spleen. There are multiple dilated small bowel loops identified throughout the abdomen with transition point identified in the right mid abdomen, best visualized on series 6 image 66 likely small bowel obstruction. Feces and gas identified in the colon. Multiple colon diverticulosis identified. Changes of right hemicolectomy. Small amount of free fluid identified in the pelvis. Urinary bladder is mildly distended. The bilateral kidneys enhance symmetrically. Moderate aortic atherosclerosis Left total hip arthroplasty changes, Moderate compression change of L2 vertebral body. IMPRESSION: 1. 6.9 x 3.8 cm hypodense mass identified in the left suprahilar lung region extending to the mediastinum likely malignancy or metastasis. 2. Multiple dilated small bowel loops identified throughout the abdomen with transition point identified in the right mid abdomen, best visualized on series 6 image 66 likely small bowel obstruction. 3. Moderately distended gallbladder with 1.2 cm gallstone identified in the proximal gallbladder. 4. Scattered nodules identified in the bilateral lungs with the largest measuring 9 mm right upper lobe of the lung with tiny cavitation could be metastasis. 5. Mild dilated esophagus with thickened appearance of the distal wall of the esophagus could be esophagitis, esophageal malignancy is not excluded. Electronically signed by: Gregg Farah MD (03/18/2021 3:26 AM) [id number] DICTATED AND SIGNED BY: GREGG FARAH MD DATE: 03/18/21310 CC: CELY ISSA MD; ENRIQUE ARROYO MD ~MTH0 IMAGING REPORT Signed PATIENT: JONATHAN NEWBERRY ACCOUNT: [id number] : 1930 LOCATION: ER AGE: 89 SEX: F EXAM STATUS: REG ER ORD. PHYSICIAN: CELY ISSA MD REASON: abdomen pain, vomiting, loss of appetite for 1 week PROCEDURE: ACUTE ABDOMEN SERIES EXAM: ABDOMEN 2 VIEWS WITH PA CHEST History: Abdominal pain, vomiting TECHNIQUE: An upright view the chest and upright and supine views of the abdomen COMPARISON: None available. FINDINGS: There is density identified in the left suprahilar region measuring 7.1 x 5.0 cm could be mass or opacity. Mild hyperinflated lungs. Multiple air fluid levels identified in the abdomen. Few calcifications identified in the pelvis likely pelvic phleboliths IMPRESSION: 1. Multiple air fluid levels identified in the abdomen be small bowel obstruction or ileus.. 2. Opacity identified in the left suprahilar region measuring 7.1 x 5.0 cm could be mass or opacity. Correlate with CT chest is recommended. Electronically signed by: Gregg Farah MD (03/18/2021 1:19 AM) [id number] DICTATED AND SIGNED BY: GREGG FARAH MD DATE: 03/18/21 011 CC: CELY ISSA MD; ENRIQUE ARROYO MD ~MTH0 0 Heart Score: C/O Chest Pain: N/A HEART Score for Chest Pain: HEART Score for Chest Pain Response (Comments) Value History Slighlty/Non-Suspicious 0 ECG Nonspecific Repolarizatio 1 Age > 65 2 Risk Factors 1 or 2 Risk Factors 1 Troponin < Normal Limit 0 Total 4 Risk Factors: Risk Factors: DM, Current or recent (<one month) smoker, HTN, HLP, family history of CAD, obesity. Risk Scores: Score 0 - 3: 2.5% MACE over next 6 weeks - Discharge Home Score 4 - 6: 20.3% MACE over next 6 weeks - Admit for Clinical Observation Score 7 - 10: 72.7% MACE over next 6 weeks - Early Invasive Strategies Course & Med Decision Making: Course & Med Decision Making Pertinent Labs and Imaging studies reviewed. (See chart for details) Pt. has completed two Covid - Moderna vaccinations. Discussed presentation, testing and treatment plan with . [facility]red [facility] for possible GI, surgery, pulmonary input. Possible palliative care consult. Impression: 1. Abdomen discomfort- Small bowel obstruction 2. Dehydration 3. Renal insufficiency BUN 40 creatinine 1.1 4. Hyponatremia 127 5. Elevated alk phos 232 and AST 42. 6. Thrombocytosis 422 7. Elevated PT 49.6, INR = 5.1, PTT= 60 8. Lt. Apical Chest Mass 6.9 x 3. 8 cm with multiple pulmonary nodes and cavitation- suspect metastatic cancer 9. Esophagitis/ vs esophageal maligancy 10. Dementia 11. UTI [] Dragon Disclaimer: Dragon Disclaimer: This electronic medical record was generated, in whole or in part, using a voice recognition dictation system. Departure Departure: Referrals: ENRIQUE ARROYO MD (PCP) [place] Disclaimer This chart was dictated in whole or in part using Voice Recognition software in a busy, high-work load, and often noisy Emergency Department environment. It may contain unintended and wholly unrecognized errors or omissions. CELY ISSA MD Mar 18, 2021 00:32
[2021-03-18] MEDS ORDERED: FAMOTIDINE 20 MG/2 ML VIAL IVP ONE (01:00)
[2021-03-18] MEDS ORDERED: ONDANSETRON PF 4 MG/2 ML VIAL. IVP ONE (01:00)
--- NOTE | 2021-03-18 01:21 | RAD ---
EXAM: ABDOMEN 2 VIEWS WITH PA CHEST History: Abdominal pain, vomiting TECHNIQUE: An upright view the chest and upright and supine views of the abdomen COMPARISON: None available. FINDINGS: There is density identified in the left suprahilar region measuring 7.1 x 5.0 cm could be mass or opa city. Mild hyperinflated lungs. Multiple air fluid levels identified in the abdomen. Few calcificatio ns identified in the pelvis likely pelvic phleboliths IMPRESSION: 1. Multiple air fluid levels identified in the abdomen be small bowel obstruction or ileus.. 2. Opacity identified in the left suprahilar region measuring 7.1 x 5.0 cm could be mass or opacity. Correlate with CT chest is recommended. Electronically signed by: Gregg Farah MD (03/18/2021 1:19 AM) [id number]
[2021-03-18] MEDS: IV RINGERS SOLUTION,LACTATED 1,000 ML IV SCH ×2 (01:23→04:20)
[2021-03-18] MEDS ORDERED: IOHEXOL 300 MG/ML 75 ML VIAL. IV ONE (01:30)
[2021-03-18] MEDS ORDERED: IOHEXOL 240 MG/ML 50ML VIAL. PO ONE (01:30)
[2021-03-18] MEDS ORDERED: CONTRAST GIVEN. MC PRN (01:30)
[2021-03-18 01:46] LABS: BASO % 0 % (0-3); EOS % 0 % (0-3); HEMATOCRIT 37.3 % (36.0-47.0); HEMOGLOBIN 12.8 g/dL (12.0-15.5); LYMPH # 1.6 x10^3/uL (1.0-4.8); LYMPH % 16 % (24-48); MEAN CORPUSCULAR HEMOGLOBIN 30 pg (25-35); MEAN CORPUSCULAR HGB CONC 34 g/dL (31-37); MEAN CORPUSCULAR VOLUME 89 fL (79-100); MONO # 1.4 x10^3/uL (0.0-1.1); MONO % 14 % (0-9); NEUT # 7.2 x10^3uL (1.8-7.7); NEUT % 70 % (31-73); PLATELET COUNT 422 x10^3/uL (140-400); RED BLOOD COUNT 4.21 x10^6/uL (3.50-5.40); RED CELL DISTRIBUTION WIDTH 13.3 % (11.5-14.5); WHITE BLOOD COUNT 10.2 x10^3/uL (4.0-11.0)
[2021-03-18 01:55] LABS: CALCIUM 9.3 mg/dL (8.5-10.1); CREATININE 1.1 mg/dL (0.6-1.0); GFR 46.8; POTASSIUM 4.5 mmol/L (3.5-5.1)
[2021-03-18 02:01] LABS: ALBUMIN 3.3 g/dL (3.4-5.0); DIRECT BILIRUBIN 0.1 mg/dL (0.0-0.2); TOTAL BILIRUBIN 0.7 mg/dL (0.2-1.0); TOTAL PROTEIN 7.7 g/dL (6.4-8.2)
[2021-03-18] MEDS ORDERED: SODIUM BICARB ADULT 8.4% 50 MEQ/50 ML DISP.SYRIN. IV ONE (02:30)
[2021-03-18 03:29] LABS: BILIRUBIN,URINE NEG (NEG); CLARITY,URINE CLEAR; COLOR,URINE YELLOW; GLUCOSE,URINE NEG (NEG)
--- NOTE | 2021-03-18 03:29 | RAD ---
Examination: CT chest abdomen pelvis with IV contrast HISTORY: History of vomiting, mass, ileus COMPARISON: CT 04/30/2020 Technique: Axial CT images of the chest abdomen pelvis are performed with IV contrast. Coronal and sa gittal reformats are performed Exposure: One or more of the following individualized dose reduction techniques were utilized for thi s examination: 1. Automated exposure control 2. Adjustment of the mA and/or kV according to patient size 3. Use of iterative reconstruction technique FINDINGS: The visualized thyroid gland grossly appears unremarkable. Central airways are patent. Mild dilated esophagus with thickened appearance of the distal wall of the esophagus. There is a 6.9 x 3.8 cm hypodense mass identified in the left suprahilar region extending to the mediastinum likely malignancy or metastasis.. There are scattered nodules identified in the bilateral lungs with the lar gest measuring 9 mm right upper lobe of the lung with tiny cavitation. Mild perihepatic fluid identified. The gallbladder is moderately distended with 1.2 cm gallstone iden tified in the proximal gallbladder. Calcified granulomas identified in the spleen. There are multiple dilated small bowel loops identified throughout the abdomen with transition point identified in the right mid abdomen, best visualized on series 6 image 66 likely small bowel obstruction. Feces and gas identified in the colon. Multiple colon diverticulosis identified. Changes of right hemicolectomy. Small amount of free fluid identified in the pelvis. Urinary bladder is mildly distended. The bilateral kidneys enhance symmetrically. Moderate aortic ath erosclerosis Left total hip arthroplasty changes, Moderate compression change of L2 vertebral body. IMPRESSION: 1. 6.9 x 3.8 cm hypodense mass identified in the left suprahilar lung region extending to the medias tinum likely malignancy or metastasis. 2. Multiple dilated small bowel loops identified throughout the abdomen with transition point identi fied in the right mid abdomen, best visualized on series 6 image 66 likely small bowel obstruction. 3. Moderately distended gallbladder with 1.2 cm gallstone identified in the proximal gallbladder. 4. Scattered nodules identified in the bilateral lungs with the largest measuring 9 mm right upper l obe of the lung with tiny cavitation could be metastasis. 5. Mild dilated esophagus with thickened appearance of the distal wall of the esophagus could be eso phagitis, esophageal malignancy is not excluded. Electronically signed by: Gregg Farah MD (03/18/2021 3:26 AM) [id number]
[2021-03-18 03:30] LABS: NITRITE,URINE NEG (NEG)
[2021-03-18 03:31] LABS: BACTERIA,URINE FEW /HPF (0-FEW); SQUAMOUS EPITHELIAL CELL,UR FEW /LPF; WBC,URINE >40 /HPF (0-4)
[2021-03-18] MEDS ORDERED: CIPROFLOXACIN 400MG PREMIX 200 ML IV ONE (04:30)
[2021-03-18 04:52] VITALS: BP 122/60
--- NOTE | 2021-03-19 06:25 | EKG ---
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
== END 2021-03-18 04:55 | disposition short-term general hospital (02) ==
LOC: ER 00:30
DX: K56.609 Unspecified intestinal obstruction, unspecified as to partial versus complete obstruction (principal); E86.0 Dehydration; N28.9 Disorder of kidney and ureter, unspecified; E87.1 Hypo-osmolality and hyponatremia; R79.89 Other specified abnormal findings of blood chemistry; R22.2 Localized swelling, mass and lump, trunk; R91.1 Solitary pulmonary nodule; F03.90 Unspecified dementia, unspecified severity, without behavioral disturbance, psychotic disturbance, mood disturbance, and anxiety; N39.0 Urinary tract infection, site not specified; D47.3 Essential (hemorrhagic) thrombocythemia; M19.90 Unspecified osteoarthritis, unspecified site; I25.10 Atherosclerotic heart disease of native coronary artery without angina pectoris; I11.0 Hypertensive heart disease with heart failure; I50.9 Heart failure, unspecified; J44.9 Chronic obstructive pulmonary disease, unspecified; F41.9 Anxiety disorder, unspecified; Z87.891 Personal history of nicotine dependence; Z88.0 Allergy status to penicillin; Z88.2 Allergy status to sulfonamides; Z88.7 Allergy status to serum and vaccine; Z88.5 Allergy status to narcotic agent; Z88.1 Allergy status to other antibiotic agents
CPT/HCPCS: 36415; 71260; 74022; 74177; 80048; 80076; 81001; 82150; 82550; 83690; 83880; 84484; 85025; 85610; 85730; 87086; 93005; 96361; 96365; 96375; 99285; J0744; J2405; J3010; J3490; J7120; Q9966; Q9967; 99284

== ENCOUNTER 2021-05-13 18:47 | Emergency (ER) | payer MEDICARE, BC ==
[~2021-05-13] VITALS: Ht 154.9 cm; Wt 49.2 kg
--- NOTE | 2021-05-13 19:22 | RAD ---
INDICATION: Reason: SLURRED SPEECH, DIFFICULTY SWALLOWING / Spl. Instructions: / History: COMPARISON: May 2020 TECHNIQUE: Axial CT images obtained through the head without intravenous contrast. One or more of the following individualized dose reduction techniques were utilized for this examinat ion: 1. Automated exposure control; 2. Adjustment of the mA and/or kV according to patient size; 3 . Use of iterative reconstruction technique. FINDINGS: No intracranial hemorrhage. No significant midline shift. Ventricles and sulci are globally prominent. Scattered foci of low attenuation within the white matter. Partial visualization of defect at the anterior aspect of C1. This is only partially seen but appears chronic in nature and is partially seen April 2020 as well. IMPRESSION: * No acute intracranial hemorrhage. * Scattered regions of low attenuation within the white matter. Non-specific in nature but a common finding and frequently secondary to small vessel ischemic disease. If there is high clinical concern for acute cause MRI can better assess acuity. * Calcific atherosclerosis. * Report called to the emergency department at 7:12 PM on date of exam. Electronically signed by: Ramakrishna Bernard MD (05/13/2021 7:20 PM) [id number]
[2021-05-13 19:24] LABS: BASO % 0 % (0-3); EOS # 0.2 x10^3/uL (0.0-0.7); EOS % 1 % (0-3); HEMOGLOBIN 11.1 g/dL (12.0-15.5); LYMPH # 2.7 x10^3/uL (1.0-4.8); LYMPH % 25 % (24-48); MEAN CORPUSCULAR HEMOGLOBIN 29 pg (25-35); MEAN CORPUSCULAR HGB CONC 32 g/dL (31-37); MEAN CORPUSCULAR VOLUME 90 fL (79-100); MONO # 1.2 x10^3/uL (0.0-1.1); MONO % 11 % (0-9); NEUT % 63 % (31-73); PLATELET COUNT 463 x10^3/uL (140-400); RED BLOOD COUNT 3.88 x10^6/uL (3.50-5.40); RED CELL DISTRIBUTION WIDTH 14.1 % (11.5-14.5)
--- NOTE | 2021-05-13 19:25 | PHYS DOC ---
Past History Past Medical History: Anxiety, Arthritis, Bartholin Cyst, CAD, Cancer, CHF, COPD, Dementia, Depression, Heart Disease, Hip Fracture, Hypertension, Hypothyroid, Other Additional Past Medical Histor: Pulmonary fobrosis Past Surgical History: Other Additional Past Surgical Histo: colon resection Smoking: Non-smoker, Quit Greater Than 1 Year Alcohol Use: None Drug Use: None General Adult EDM: Chief Complaint: SLURRED SPEECH HPI: HPI: Patient is a [age] year old [sex] who presents with [] Review of Systems: Review of Systems: Constitutional: Denies fever or chills Eyes: Denies change in visual acuity HENT: Denies nasal congestion or sore throat Respiratory: Denies cough or shortness of breath Cardiovascular: Denies chest pain or edema GI: Denies abdominal pain, nausea, vomiting, bloody stools or diarrhea : Denies dysuria Musculoskeletal: Denies back pain or joint pain Integument: Denies rash Neurologic: Denies headache, focal weakness or sensory changes Endocrine: Denies polyuria or polydipsia Lymphatic: Denies swollen glands Psychiatric: Denies depression or anxiety Allergies: Allergies: Allergies Coded Allergies Type Severity Reaction Last Updated Verified Penicillins Allergy Unknown 05/13/21 Yes Sulfa (Sulfonamide Antibiotics) Allergy Unknown 05/13/21 Yes Tetanus Vaccines and Toxoid Allergy Unknown 05/13/21 Yes clarithromycin Allergy Unknown 05/13/21 Yes morphine Allergy Unknown 05/13/21 Yes Physical Exam: PE: Constitutional: Well developed, well nourished, no acute distress, non-toxic appearance. [] HENT: Normocephalic, atraumatic, bilateral external ears normal, oropharynx moist, no oral exudates, nose normal. [] Eyes: PERRLA, EOMI, conjunctiva normal, no discharge. [] Neck: Normal range of motion, no tenderness, supple, no stridor. [] Cardiovascular:Heart rate regular rhythm, no murmur [] Lungs & Thorax: Bilateral breath sounds clear to auscultation [] Abdomen: Bowel sounds normal, soft, no tenderness, no masses, no pulsatile masses. [] Skin: Warm, dry, no erythema, no rash. [] Back: No tenderness, no CVA tenderness. [] Extremities: No tenderness, no cyanosis, no clubbing, ROM intact, no edema. [] Neurologic: Alert and oriented X 3, normal motor function, normal sensory function, no focal deficits noted. [] Psychologic: Affect normal, judgement normal, mood normal. [] Current Patient Data: Vital Signs: Vital Signs Date Time Temp Pulse Resp B/P (MAP) Pulse Ox O2 Delivery O2 Flow Rate FiO2 05/13/21 19:01 147/65 (92) 05/13/21 18:52 98.3 90 20 98 Room Air 2.0 EKG: EKG: My interpretation Tatian of EKG shows a sinus rhythm of 85 bpm. Does have occasional PACs. There is nonspecific T wave flattening. But no findings acute STEMI of contralateral changes there is some movement artifact. He has an abnormal EKG. Radiology/Procedures: Radiology/Procedures: [][address] [address] IMAGING REPORT Signed PATIENT: JONATHAN NEWBERRY ACCOUNT: [id number] : 1930 LOCATION: ER AGE: 89 SEX: F EXAM STATUS: REG ER ORD. PHYSICIAN: AUTUMN CUNNINGHAM APRN REASON: SLURRED SPEECH, DIFFICULTY SWALLOWING PROCEDURE: CT CODE STROKE HEAD WO INDICATION: Reason: SLURRED SPEECH, DIFFICULTY SWALLOWING / Spl. Instructions: / History: COMPARISON: May 2020 TECHNIQUE: Axial CT images obtained through the head without intravenous contrast. One or more of the following individualized dose reduction techniques were util ized for this examination: 1. Automated exposure control; 2. Adjustment of the mA and/or kV according to patient size; 3. Use of iterative reconstruction technique. FINDINGS: No intracranial hemorrhage. No significant midline shift. Ventricles and sulci are globally prominent. Scattered foci of low attenuation within the white matter. Partial visualization of defect at the anterior aspect of C1. This is only partially seen but appears chronic in nature and is partially seen April 2020 as well. IMPRESSION: * No acute intracranial hemorrhage. * Scattered regions of low attenuation within the white matter. Non-specific in nature but a common finding and frequently secondary to small vessel ischemic disease. If there is high clinical concern for acute cause MRI can better assess acuity. * Calcific atherosclerosis. * Report called to the emergency department at 7:12 PM on date of exam. Electronically signed by: Homer Jacobson MD (05/13/2021 7:20 PM) [id number] DICTATED AND SIGNED BY: HOMER JACOBSON MD DATE: 05/13/211909 CC: EMERGENCY,DEPARTMENT; AUTUMN CUNNINGHAM APRN; ENRIQUE ARROYO MD ~MTH0 0 Heart Score: Risk Factors: Risk Factors: DM, Current or recent (<one month) smoker, HTN, HLP, family history of CAD, obesity. Risk Scores: Score 0 - 3: 2.5% MACE over next 6 weeks - Discharge Home Score 4 - 6: 20.3% MACE over next 6 weeks - Admit for Clinical Observation Score 7 - 10: 72.7% MACE over next 6 weeks - Early Invasive Strategies Course & Med Decision Making: Course & Med Decision Making Pertinent Labs and Imaging studies reviewed. (See chart for details) Keep follow up with primary. Take daily aspirin. Return if any concerns. Impression: 1. Slurred Speech. [] Dragon Disclaimer: Dragon Disclaimer: This electronic medical record was generated, in whole or in part, using a voice recognition dictation system. Departure Departure: Referrals: ENRIQUE ARROYO MD (PCP) CELY ISSA MD May 13, 2021 19:25
[2021-05-13 19:34] LABS: CREATININE 0.8 mg/dL (0.6-1.0); GFR 67.5; POTASSIUM 4.6 mmol/L (3.5-5.1)
[2021-05-13 21:02] LABS: BILIRUBIN,URINE NEG (NEG); CLARITY,URINE CLOUDY; COLOR,URINE YELLOW; GLUCOSE,URINE NEG (NEG)
[2021-05-13 21:06] LABS: BACTERIA,URINE 0 /HPF (0-FEW); NITRITE,URINE NEG (NEG); UROBILINOGEN,URINE 0.2 mg/dL (0.2 mg/dL)
[2021-05-13 22:45] VITALS: BP 152/70
[2021-05-13] MEDS ORDERED: ASPIRIN 325 MG TABLET PO ONE (23:30)
--- NOTE | 2021-05-14 05:15 | EKG ---
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
== END 2021-05-13 23:13 | disposition home or self-care (01) ==
LOC: ER 18:47
DX: R47.81 Slurred speech (principal); F41.9 Anxiety disorder, unspecified; M19.90 Unspecified osteoarthritis, unspecified site; I25.10 Atherosclerotic heart disease of native coronary artery without angina pectoris; I11.0 Hypertensive heart disease with heart failure; I50.9 Heart failure, unspecified; J44.9 Chronic obstructive pulmonary disease, unspecified; F03.90 Unspecified dementia, unspecified severity, without behavioral disturbance, psychotic disturbance, mood disturbance, and anxiety; F32.9 Major depressive disorder, single episode, unspecified; E03.9 Hypothyroidism, unspecified; Z87.891 Personal history of nicotine dependence; Z88.0 Allergy status to penicillin; Z88.2 Allergy status to sulfonamides; Z88.7 Allergy status to serum and vaccine; Z88.5 Allergy status to narcotic agent; Z88.1 Allergy status to other antibiotic agents
CPT/HCPCS: 36415; 70450; 80048; 81001; 84484; 85025; 87077; 87086; 93005; 99285; P9612